=== PATIENT | male | born 1955 | race African-American/Black ===

== ENCOUNTER 2020-03-06 16:06 | Emergency (ER) | payer OTHER ==
[~2020-03-06] VITALS: Ht 188 cm; Wt 93.0 kg
[2020-03-06 18:32] LABS: ABSOLUTE NEUTROPHILS 1.8 thou/uL (1.4-8.2); BASOPHILS 1.1 % (0.0-2.0); EOSINOPHILS 1.7 % (0.0-3.0); HEMATOCRIT 40.4 % (42.0-52.0); HEMOGLOBIN 13.2 gm/dL (14.0-18.0); LYMPHOCYTES 43.8 % (24.0-44.0); MCH 29.9 pg (26.0-34.0); MCHC 32.8 g/dL (28.0-37.0); MCV 91.3 fL (80.0-100.0); MONOCYTES 11.8 % (1.0-8.0); PLATELET COUNT 184 thou/uL (150-400); POLYS 41.6 % (36.0-66.0); RBC 4.43 mil/uL (4.50-6.00); RDW 14.9 % (10.5-14.5); WBC 4.4 thou/uL (4.0-11.0)
[2020-03-06 18:39] LABS: ANION GAP 9 mmol/L (7-16); BUN 9 mg/dL (7-18); CALCIUM 7.7 mg/dL (8.5-10.1); CHLORIDE 107 mmol/L (98-107); CO2 26 mmol/L (21-32); GLUCOSE 89 mg/dL (74-106); SODIUM 142 mmol/L (136-145)
[2020-03-06 18:49] LABS: TROPONIN-I <0.06 ng/mL (<0.06)
[2020-03-06] MEDS ORDERED: ELIQUIS5 MG PO (19:41)
[2020-03-06] MEDS ORDERED: TOPROL XL25 MG PO (19:41)
[2020-03-06 20:28] VITALS: BP 148/94
--- NOTE | 2020-03-07 09:03 | EKG ---
[facility] [place] [address] ELECTROCARDIOGRAM REPORT Name: COOKIEGALDINO Room #: DEP [facility]#: [id number] Admission: 03/06/20 Attend Phys: Discharge: 03/06/20 Date of : 53 Report #: [id number] THIS REPORT FOR: cc: FAM - No family physician/PCP FAM - No family physician/PCP Parth Woodson MD [facility] THIS REPORT FOR: //name// [facility] ED Test Date: 2020-03-06 Test Time: 17:28:39 Pat Name: GALDINO GARY Department: Room: Gender: Laminate Floor Installer: [facility] : 1955 Requested By: Marco Garcia Order Number: [id number] MD: Parth Woodson Measurements Intervals [place] Rate: 67 P: 50 PA: 160 QRS: 53 QRSD: 99 T: 63 QT: 431 QTc: 455 Interpretive Statements Sinus rhythm No significant abnormality No previous ECG available for comparison Electronically Signed On 03-07-2020 9:03:44 CDT by Parth Woodson [email or web address] <ELECTRONICALLY SIGNED> By: Parth Woodson MD, [facility] 03/07/20 0903 27 Parth Woodson MD, [facility] /EPI
== END 2020-03-06 20:29 | disposition home or self-care (01) ==
LOC: ER 16:06
PROVIDERS: Emergency Medicine
DX: I48.0 Paroxysmal atrial fibrillation (principal); R00.2 Palpitations